=== PATIENT | female | born 1995 | race Caucasian/White ===

== ENCOUNTER 2016-06-01 10:43 | Emergency (ER) | payer OTHER ==
[~2016-06-01] VITALS: Ht 157.5 cm; Wt 49.4 kg
[~2016-06-01 10:43] MED LIST: AMOXICILLIN500 MG PO; MACROBID100 M1 PO; MOTRIN100 M2; MOTRIN600 MG PO; PHENERGAN25 MG RC; ZANTAC150 MG PO
[2016-06-01 11:01] VITALS: BP 117/66
--- NOTE | 2016-06-01 11:04 | NUR ---
Patient ambulated to bed 04.
--- NOTE | 2016-06-01 11:10 | NUR ---
AAO, COOPERATIVE PT AMBULATES TO THE RESTROOM FOR URINE SAMPLE
[2016-06-01] MEDS ORDERED: fentaNYL 0.05 MG/ML VIAL ONE (11:12)
[2016-06-01] MEDS ORDERED: HYDROmorphone PFS 2 MG/ML SYR ONE (11:13)
--- NOTE | 2016-06-01 11:21 | NUR ---
PT TAKEN TO ULTRASOUND VIA WHEEL CHAIR
--- NOTE | 2016-06-01 11:30 | NUR ---
PATIENT PRESENTS TO ED WITH VAGINAL BLEEDING SINCE YESTERDAY; DENIES N/V/D; SKIN IS PINK/WARM/DRY; AAOX4 WITH EVEN AND STEADY GAIT; LUNGS CLEAR BL; HR EVEN AND REGULAR; PT DENIES ANY FEVER, CP, SOB, OR COUGH AT THIS TIME; PATIENT STATES PAIN OF 0/10 AT THIS TIME; VSS; PATIENT POSITIONED FOR COMFORT; HOB ELEVATED; BEDRAILS UP X2; BED DOWN. ER MD MADE AWARE OF PT STATUS.
--- NOTE | 2016-06-01 11:40 | NUR ---
PER DR MELENDEZ NOT TO GIVE DILAUDED AND FENTANYL
--- NOTE | 2016-06-01 12:36 | NUR ---
DR MELENDEZ AT BEDSIDE ASSESSING THE PT
[2016-06-01] MEDS ORDERED: METHYLERGONOVINE 0.2 MG/ML AMP IM ONE (12:45)
[2016-06-01 13:05] VITALS: BP 100/53
== END 2016-06-01 13:05 | disposition home or self-care (01) ==
LOC: MED 10:43
DX: N39.0 Urinary tract infection, site not specified (principal)
CPT/HCPCS: 36415; 76856; 81001; 81025; 84702; 85025; 85610; 85730; 87086; 96372; 99285; J2210

== ENCOUNTER 2016-06-02 19:42 | Emergency (ER) | payer OTHER ==
[~2016-06-02] VITALS: Ht 157.5 cm; Wt 49.9 kg
[2016-06-02 19:57] VITALS: BP 127/64
--- NOTE | 2016-06-02 20:23 | NUR ---
Patient to US from Lobby via wheelchair per tech.
--- NOTE | 2016-06-02 20:40 | NUR ---
Patient to lobby from US via wheelchair per tech.
--- NOTE | 2016-06-02 20:57 | NUR ---
Patient ambulated to bed 04.
--- NOTE | 2016-06-02 21:00 | NUR ---
21Y/F PATIENT PRESENTS TO ED WITH C/O ABDOMINAL PAIN X 2 DAYS . PT STATES JUST HAD BABY LAST MONTH, 2 DAYS AGO STARTED HAVING ABDOMINAL PAIN WITH VAGINAL BLEEDING . DENIES N/V/D; SKIN IS PINK/WARM/DRY; AAOX4 WITH EVEN AND STEADY GAIT; LUNGS CLEAR BL; HR EVEN AND REGULAR; PT DENIES ANY FEVER, CP, SOB, OR COUGH AT THIS TIME; PATIENT STATES PAIN OF 6/10 AT THIS TIME; VSS; PATIENT POSITIONED FOR COMFORT; HOB ELEVATED; BEDRAILS UP X2; BED DOWN. ER MD MADE AWARE OF PT STATUS.
--- NOTE | 2016-06-02 21:02 | NUR ---
Dr. Rivera evaluating patient at bedside.
[2016-06-02] MEDS ORDERED: HYDROcodone/APAP 5/325 MG 1 TAB TAB PO ONE (21:40)
--- NOTE | 2016-06-02 21:55 | NUR ---
Patient discharged with v/s stable. Written and verbal after care instructions given and explained. Patient alert, oriented and verbalized understanding of instructions. Ambulatory with steady gait. All questions addressed prior to discharge. ID band removed. Patient advised to follow up with PMD. Rx of TYLENOL NO.3 given. Patient educated on indication of medication including possible reaction and side effects. Opportunity to ask questions provided and answered.
[2016-06-02 21:57] VITALS: BP 128/70
== END 2016-06-02 21:55 | disposition home or self-care (01) ==
LOC: MED 19:42
PROC: BW4GZZZ Ultrasonography of Pelvic Region (ICD-10-PCS; principal; 2016-06-02)
DX: R10.30 Lower abdominal pain, unspecified (principal); R03.0 Elevated blood-pressure reading, without diagnosis of hypertension

== ENCOUNTER 2017-11-22 18:57 | Emergency (ER) | payer MEDICAID, OTHER ==
[~2017-11-22] VITALS: Ht 157.5 cm; Wt 49.9 kg
[2017-11-22 19:04] VITALS: BP 127/67
[2017-11-22 20:28] LABS: BASOPHILS % (AUTO) 0.3 % (0.0-2.0); EOSINOPHILS # (AUTO) 0.1 K/uL (0-0.4); EOSINOPHILS % (AUTO) 1.2 % (0.0-4.0); HEMATOCRIT 35.5 % (36-48); HEMOGLOBIN 11.8 g/dL (12.0-16.0); LYMPHOCYTES # (AUTO) 1.7 K/uL (2.5-16.5); LYMPHOCYTES % (AUTO) 29.4 % (20.5-51.1); MEAN CORPUSCULAR HEMOGLOBIN 30 pg (27-31); MEAN CORPUSCULAR HGB CONC 33 g/dL (33-37); MEAN CORPUSCULAR VOLUME 89.4 fL (80-94); MONOCYTES # (AUTO) 0.4 K/uL (0.8-1.0); MONOCYTES % (AUTO) 7.4 % (1.7-9.3); NEUTROPHILS # (AUTO) 3.7 K/uL (1.8-7.7); NEUTROPHILS % (AUTO) 61.7 % (42.2-75.2); PLATELET COUNT (AUTO) 231 K/uL (140-450); RED BLOOD CELL COUNT(AUTO) 3.97 MIL/uL (4.20-5.40); RED CELL DISTRIBUTION WIDTH 13.5 % (11.6-13.7); WHITE BLOOD COUNT (AUTO) 5.9 K/uL (4.8-10.8)
[2017-11-22 20:34] LABS: APPEARANCE,URINE CLEAR (CLEAR); BILIRUBIN,URINE NEGATIVE (NEGATIVE); BLOOD, URINE NEGATIVE (NEGATIVE); COLOR,URINE YELLOW (YELLOW); LEUKOCYTE ESTERASE ,URINE NEGATIVE (NEGATIVE); NITRITE, URINE NEGATIVE (NEGATIVE); PH,URINE 5.5 (5.0-9.0); UGLUCOSE NEGATIVE (NEGATIVE)
[2017-11-22 23:17] VITALS: BP 120/56
== END 2017-11-22 23:13 | disposition home or self-care (01) ==
LOC: MED 18:57
DX: O21.8 Other vomiting complicating pregnancy (principal); O26.891 Other specified pregnancy related conditions, first trimester; R10.9 Unspecified abdominal pain; Z3A.10 10 weeks gestation of pregnancy
CPT/HCPCS: 36415; 76801; 81003; 81025; 84702; 85025; 86900; 86901; 99285; Q0092; 81002

== ENCOUNTER 2020-10-31 14:30 | Emergency (ER) | payer MEDICAID, OTHER ==
[~2020-10-31] VITALS: Ht 157.5 cm; Wt 59.0 kg
--- NOTE | 2020-10-31 14:39 | NUR ---
PT AMBULATED TO ER BED 5.
[2020-10-31 14:40] VITALS: BP 129/84
--- NOTE | 2020-10-31 14:40 | NUR ---
MD BEDSIDE EVALUATING PT
--- NOTE | 2020-10-31 14:40 | NUR ---
25 FEMALE WITH C/O OF DIZZINESS AFTER HITTING HER HEAD ON HER BEDFRAME THIS MORNING AROUND 3AM. PATIENT DENIES LOC, N/V, AND STATES "SHE WENT TO SLEEP AFTER HITTING HER HEAD THIS MORNING." PATIENT STATES HER CURRENT PAIN IS 4/10 AND HAS A HEADACHE OF 4/10 THAT IS THROBBING, BUT DENIES ANY OTHER TYPE OF PAIN. PMH: DENIES NKA Addendum: 10/31/20 at 1447 by [email or web address] PT STATES SHE HAS BEEN EXPERICINING SOME DIZZINES SINCE HITTING HER HEAD
[2020-10-31] MEDS ORDERED: MECLIZINE 25 MG TAB PO ONE (14:45)
[2020-10-31] MEDS ORDERED: ACETAMINOPHEN EXTRA STRENGTH 500 MG TAB PO ONE (14:45)
[2020-10-31] MEDS ORDERED: KETOROLAC 15 MG/ML VIAL IM ONE (14:45)
[2020-10-31 15:23] VITALS: BP 129/84
--- NOTE | 2020-10-31 15:24 | NUR ---
Patient discharged with v/s stable. Written and verbal after care instructions given and explained. Patient verbalized understanding. Ambulatory with steady gait. All questions addressed prior to discharge. Advised to follow up with PMD.
== END 2020-10-31 15:24 | disposition home or self-care (01) ==
LOC: MED 14:30
DX: S06.0X0A Concussion without loss of consciousness, initial encounter (principal); W19.XXXA Unspecified fall, initial encounter; Y93.89 Activity, other specified; Y92.89 Other specified places as the place of occurrence of the external cause; Y99.8 Other external cause status
CPT/HCPCS: 96372; 99283; J1885; J8597